=== PATIENT | female | born 1955 ===

== ENCOUNTER 2017-09-11 14:00 | Emergency (ER) | payer BC ==
[~2017-09-11 14:00] MED LIST: EPINEPHrine SYR 0.1 MG/ML* (1:10,000) SYRINGE ONE; Norepinephrine VIAL* 1 MG/ML 4 ML VIAL ONE
[2017-09-11] MEDS ORDERED: Norepinephrine 16MCG/ML IVPRE* 4,000 MCG/250 ML BAG IV ONE (14:19)
[2017-09-11] MEDS ORDERED: EPINEPHrine SYR 0.1 MG/ML* (1:10,000) SYRINGE ONE (14:45)
[2017-09-11] MEDS ORDERED: Norepinephrine VIAL* 1 MG/ML 4 ML VIAL ONE (14:45)
[2017-09-11] MEDS ORDERED: Sodium Bicarbonate 8.4%* 50 ML SYRINGE ONE (14:45)
[2017-09-11 15:08] LABS: Hematocrit 16 % (35-47); Hemoglobin 5.1 g/dl (12.0-16.0); Mean Corpuscular HGB Conc 31 g/dl (31-36); Mean Corpuscular Hemoglobin 29 pg (27-31); Mean Corpuscular Volume 93 fL (80-97); Mean Platelet Volume 6.5 um3 (7.4-10.4); Platelet Count 93 10^3/ul (150-450); Red Blood Count 1.77 10^6/ul (4.0-5.4); Red Cell Distribution Width 19 % (10.5-15); White Blood Count 8.3 10^3/ul (3.5-10.8)
--- NOTE | 2017-09-11 15:15 | HP ---
H&P (Free Text) History and Physical: CRITICAL CARE MEDICINE DATE: 09/11/17 TIME: 1400 PRIMARY ONC CARE PROVIDER: Gabriella REFERRING PROVIDER: Bladimir REASON/CHIEF COMPLAINT: [facility] HISTORY OF PRESENT ILLNESS: 61 yo female undergoing palliative chemotx, xrt for metastatic small cell lung ca who has been declining at home but failed set up for homebound teacher per family and was home today with her . Feeling unwell but could not tell what was wrong. Seemed to syncopize in bed and he called son and 911. on foreign banknote teller trader, cpr initiated. EMS able to place advanced airway. I/o. ROSC x 3 en route but again with pulse lost, pea. epi x5. another course in ED with rosc and started on levo post. IVF instilling. Fixed and dilated on exam. no corneals. coarse bs. thick LV, underfilled on bedside. D/w family and we are in agreement to continue chemical support and withhold cpr. REVIEW OF SYSTEMS: As per HPI. PAST MEDICAL HISTORY: As per HPI. MEDICATIONS: Reviewed. ALLERGIES: Reviewed. SOCIAL HISTORY: Reviewed. . son and proxy. was a school patrol FAMILY HISTORY: Noncontributory at present. PHYSICAL EXAM: Vital Signs: Reviewed. Neurologic: comatose with gcs 3T. no brain stem reflexes. fixed and dil HEENT: ett in place. some bloddy secretions. Cardiovascular: with rosc distant, tachy Respiratory: coarse bl Abdomen: soft Extremities: pale, no edema. i/o LABS: Reviewed. No back at time of eval. IMAGING: Reviewed. cxr reviewed. MEDICATIONS: Reviewed but unconfirmed ASSESSMENT: 61 F [facility]CA - pea with downtime about 45min Just now labs revealing severe anemia Cardiogenic shock Hypovolemic shock Acute hypoxic resp failure Coma on presentation. Anoxic brain injury? PLAN: Neurologic: coma. ttm euthermia. prognosis poor. Cardiovascular: levophed at 30. IVF boluses instilled. Respiratory: cannot maintain oxygneation nor ventilation very well despite vent support due to acid overload. would need considerable time and certainly more time at these levels would worsen brain anoxia. not ecmo candidate. Gastrointestinal: would need ogt. sup Renal/Metabolic: jaciel and LA apparent and msof. wooten placed without much uout Infectious Disease: broad coverage perhaps given immunsuppression and waiting on labs Hematology: labs back post mortem. Endocrine: considered steroids. Musculoskeletal: bedrest Psych/Social: d/w family emergently and throughout. She contines to undergo chemical resuscitation and yet continues with arrests. considering blood and esclations of care but given down time and acute as well as underlying system failures, we were in agreement for supportive care as DNI. She continued to decline despite supports, levophed max, fluids bicarb. And family, we opted for comfort alone. Removed from gtt and vent and allowed to pass peacefully. D/w Dr. Garrison Disposition: will pass Code Status: DNR Critical Care Time: 60min Sarah Beth Jaramillo DO
[2017-09-11 15:20] LABS: EGFR Non-African American 55.9 (>60)
--- NOTE | 2017-09-11 15:20 | RAD ---
INDICATION: Unresponsiveness COMPARISON: None. TECHNIQUE: Single AP portable view of the chest was obtained. FINDINGS: Image quality is compromised due to the relative inferiority of a portable chest x-ray and somewhat by the overlying AED pads. There is an endotracheal tube with the tip terminating 3.6 cm above the rocael. The heart and mediastinum exhibit normal size and contour. There is patchy density overlying the bilateral lungs, slightly worse in the right than the left. Visualized bones are normal for the patient's age. IMPRESSION: Right upper lung dominant density could be seen in the setting of pulmonary edema according to the patient's clinical presentation.
[2017-09-11 15:25] LABS: INR 1.48 (0.77-1.02)
[2017-09-11] MEDS ORDERED: Morphine VIAL* 4 MG/ML VIAL (1 ml vial) IV ONE (15:29)
[2017-09-11 15:30] VITALS: BP 62/41
[2017-09-11] MEDS ORDERED: Morphine INJ* 10 MG/ML 1 ML CARPUJECT IV ONE (15:36)
[2017-09-11 15:52] LABS: ABS Basophils 0.1 10^3/ul (0-0.2); ABS Eosinophils 0 10^3/ul (0-0.6); ABS Lymphocytes 5.9 10^3/ul (1.0-4.8); ABS Monocytes 0.1 10^3/ul (0-0.8); ABS Neutrophils 2.3 10^3/ul (1.5-7.7); ABS Nucleated RBC 0 10^3/ul; Eosinophil % 0.4 % (0-6); Lymphocyte % 70.9 % (25-47); Nucleated Red Blood Cells % 0.1
--- NOTE | 2017-09-11 15:52 | PN ---
Progress Note - Progress Note Date of Service: 09/11/17 Note: CRITICAL CARE MEDICINE Date: 09/11/17 Time: 1550 Family at bedside. We continued to discuss. Brother had arrived. All in agreement to cease tx and allow her to be comfortable and pass. Levophed stop. 10mg morphine. Terminally extubated at 15:31. Passed at 3:45 with family present. Code Status: DNR Critical Care Time: 15min additional F. Diego Jaramillo, DO
--- NOTE | 2017-09-13 14:33 | ED ---
Neeraj Araiza Julia, scribed for Tashi Garrison MD on 09/11/17 at 1409 . Cardiac Resuscitation - HPI Summary HPI Summary: This patient is a 61 year old F BIBA to [facility] unresponsive. EMS was called by the family who found her unresponsive and told them the patient was no DNR or DNI. Family started CPR at the scene. EMS performed CPR for 30-40 minutes. EMS lost pulses at 13:56, and felt faint pulses intermittently. Patient was intubated with 7.5 tube with 25 at the lip. IO at R tibia. Five rounds of Epinephrine was given. Bicarb was not given. PMHx of stage 4 lung CA with metastisis to the brain CA. HPI IS LIMITED. PATIENT IS LEVEL 5 CAVEAT. - History of Current Complaint Stated Complaint: UNRESPONSIVE Hx Obtained From: EMS Hx From Patient Unobtainable Due To: Extremis Onset/Duration: Unknown Arrest Witnessed: No Down-time Before Basic Life Support Initiated: Unknown Down-time Before Advanced Life Support Initiated: Unknown - Past Medical History Past Medical History: Other: - stage 4 brain CA - Family History Family History: Unobtainable Due to Extremis - Social History Social History: Unobtainable Due to Extremis - Review of Systems Review of Systems: Unobtainable Due to Extremis Physical Examination - Summary Physical Exam Summary: VITAL SIGNS: Reviewed. GENERAL: Patient is unresponsive. Patient was intubated by EMS. Patient is is active CPR HEAD AND FACE: No signs of trauma. No ecchymosis, hematomas or skull depressions. EYES: Pupils dilated and non reactive. No corneal reaction MOUTH: Oral mucosa dry NECK: Supple, trachea is midline, no adenopathy, no JVD, no carotid bruit. Intibated with 7.5 EET. LUNGS: Decreased breath sounds. CVS: Active CPR, no pulses ABDOMEN: Soft and decreased bowel sounds. EXTREMITIES: No edema noted. NEURO: Comatose with a GCS of 3. No brain stem reflexes. Pupils fixed and dilated. SKIN: Dry and warm Diagnostics - Vital Signs Vital Signs Temp Pulse Resp BP Pulse Ox 09/11/17 15:32 107 74 09/11/17 15:27 62/41 09/11/17 15:22 71/53 09/11/17 15:16 80/45 09/11/17 15:12 76/44 09/11/17 15:07 97.1 F 09/11/17 15:06 80/53 09/11/17 14:57 93/77 09/11/17 14:47 94 147/47 09/11/17 14:30 0 F 0 0 00/00 0 09/11/17 14:06 80 94 - Laboratory Lab Results: Lab Results 09/11/17 09/11/17 09/11/17 Range/Units 14:30 14:54 14:54 WBC 8.3 (3.5-10.8) 10^3/ul RBC 1.77 L (4.0-5.4) 10^6/ul Hgb 5.1 L* (12.0-16.0) g/dl Hct 16 L (35-47) % MCV 93 (80-97) fL MCH 29 (27-31) pg MCHC 31 (31-36) g/dl RDW 19 H (10.5-15) % Plt Count 93 L (150-450) 10^3/ul MPV 6.5 L (7.4-10.4) um3 Neut % (Auto) 27.0 L (38-83) % Lymph % (Auto) 70.9 H (25-47) % [place] % (Auto) 0.8 (0-7) % Eos % (Auto) 0.4 (0-6) % Baso % (Auto) 0.9 (0-2) % Absolute Neuts (auto) 2.3 (1.5-7.7) 10^3/ul Absolute Lymphs (auto) 5.9 H (1.0-4.8) 10^3/ul Absolute Monos (auto) 0.1 (0-0.8) 10^3/ul Absolute Eos (auto) 0 (0-0.6) 10^3/ul Absolute Basos (auto) 0.1 (0-0.2) 10^3/ul Absolute Nucleated RBC 0 10^3/ul Nucleated RBC % 0.1 ESR 33 H (0-30) mm/Hr Hem Pathologist Commnt Pending INR (Anticoag Therapy) 1.48 H (0.77-1.02) APTT 111.6 H* (26.0-36.3) seconds Fibrinogen 94.9 L (110.8-404.3) mg/dL ABG pH Dowel Machine Operator ABG pH (Temp Correct) < 7.00 L* (7.35-7.45) ABG pCO2 80 H* (35-45) mmHg ABG pO2 92 (80-100) mmHg ABG HCO3 TNP ABG O2 Saturation 90.4 L (95-98) % ABG Base Excess TNP Sodium (139-145) mmol/L Potassium (3.5-5.0) mmol/L Chloride (101-111) mmol/L Carbon Dioxide (22-32) mmol/L Anion Gap (2-11) mmol/L BUN (6-24) mg/dL Creatinine (0.51-0.95) mg/dL Est GFR ( Amer) (>60) Est GFR (Non-Af Amer) (>60) BUN/Creatinine Ratio (8-20) Glucose (70-100) mg/dL Lactic Acid (0.5-2.0) mmol/L Calcium (8.6-10.3) mg/dL Total Bilirubin (0.2-1.0) mg/dL AST (13-39) U/L ALT (7-52) U/L Alkaline Phosphatase (34-104) U/L Total Creatine Kinase (10-223) U/L Troponin I (<0.04) ng/mL C-Reactive Protein (< 5.00) mg/L B-Natriuretic Peptide ( - 100) pg/mL Total Protein (6.4-8.9) g/dL Albumin (3.2-5.2) g/dL Globulin (2-4) g/dL Albumin/Globulin Ratio (1-3) Procalcitonin (<0.6) ng/mL 09/11/17 09/11/17 09/11/17 Range/Units 14:54 14:54 14:54 WBC (3.5-10.8) 10^3/ul RBC (4.0-5.4) 10^6/ul Hgb (12.0-16.0) g/dl Hct (35-47) % MCV (80-97) fL MCH (27-31) pg MCHC (31-36) g/dl RDW (10.5-15) % Plt Count (150-450) 10^3/ul MPV (7.4-10.4) um3 Neut % (Auto) (38-83) % Lymph % (Auto) (25-47) % [place] % (Auto) (0-7) % Eos % (Auto) (0-6) % Baso % (Auto) (0-2) % Absolute Neuts (auto) (1.5-7.7) 10^3/ul Absolute Lymphs (auto) (1.0-4.8) 10^3/ul Absolute Monos (auto) (0-0.8) 10^3/ul Absolute Eos (auto) (0-0.6) 10^3/ul Absolute Basos (auto) (0-0.2) 10^3/ul Absolute Nucleated RBC 10^3/ul Nucleated RBC % ESR (0-30) mm/Hr Hem Pathologist Commnt INR (Anticoag Therapy) (0.77-1.02) APTT (26.0-36.3) seconds Fibrinogen (110.8-404.3) mg/dL ABG pH ABG pH (Temp Correct) (7.35-7.45) ABG pCO2 (35-45) mmHg ABG pO2 (80-100) mmHg ABG HCO3 ABG O2 Saturation (95-98) % ABG Base Excess Sodium 144 (139-145) mmol/L Potassium 5.3 H (3.5-5.0) mmol/L Chloride 107 (101-111) mmol/L Carbon Dioxide 13 L* (22-32) mmol/L Anion Gap 24 H (2-11) mmol/L BUN 10 (6-24) mg/dL Creatinine 1.01 H (0.51-0.95) mg/dL Est GFR ( Amer) 71.9 (>60) Est GFR (Non-Af Amer) 55.9 (>60) BUN/Creatinine Ratio 9.9 (8-20) Glucose 404 H (70-100) mg/dL Lactic Acid 9.1 H* (0.5-2.0) mmol/L Calcium 6.9 L (8.6-10.3) mg/dL Total Bilirubin 0.60 (0.2-1.0) mg/dL AST 234 H (13-39) U/L ALT 184 H (7-52) U/L Alkaline Phosphatase 218 H (34-104) U/L Total Creatine Kinase 107 (10-223) U/L Troponin I 0.23 H* (<0.04) ng/mL C-Reactive Protein 71.32 H (< 5.00) mg/L B-Natriuretic Peptide 111 H ( - 100) pg/mL Total Protein 3.6 L (6.4-8.9) g/dL Albumin 1.8 L (3.2-5.2) g/dL Globulin 1.8 L (2-4) g/dL Albumin/Globulin Ratio 1.0 (1-3) Procalcitonin (<0.6) ng/mL 09/11/17 Range/Units 14:54 WBC (3.5-10.8) 10^3/ul RBC (4.0-5.4) 10^6/ul Hgb (12.0-16.0) g/dl Hct (35-47) % MCV (80-97) fL MCH (27-31) pg MCHC (31-36) g/dl RDW (10.5-15) % Plt Count (150-450) 10^3/ul MPV (7.4-10.4) um3 Neut % (Auto) (38-83) % Lymph % (Auto) (25-47) % [place] % (Auto) (0-7) % Eos % (Auto) (0-6) % Baso % (Auto) (0-2) % Absolute Neuts (auto) (1.5-7.7) 10^3/ul Absolute Lymphs (auto) (1.0-4.8) 10^3/ul Absolute Monos (auto) (0-0.8) 10^3/ul Absolute Eos (auto) (0-0.6) 10^3/ul Absolute Basos (auto) (0-0.2) 10^3/ul Absolute Nucleated RBC 10^3/ul Nucleated RBC % ESR (0-30) mm/Hr Hem Pathologist Commnt INR (Anticoag Therapy) (0.77-1.02) APTT (26.0-36.3) seconds Fibrinogen (110.8-404.3) mg/dL ABG pH ABG pH (Temp Correct) (7.35-7.45) ABG pCO2 (35-45) mmHg ABG pO2 (80-100) mmHg ABG HCO3 ABG O2 Saturation (95-98) % ABG Base Excess Sodium (139-145) mmol/L Potassium (3.5-5.0) mmol/L Chloride (101-111) mmol/L Carbon Dioxide (22-32) mmol/L Anion Gap (2-11) mmol/L BUN (6-24) mg/dL Creatinine (0.51-0.95) mg/dL Est GFR ( Amer) (>60) Est GFR (Non-Af Amer) (>60) BUN/Creatinine Ratio (8-20) Glucose (70-100) mg/dL Lactic Acid (0.5-2.0) mmol/L Calcium (8.6-10.3) mg/dL Total Bilirubin (0.2-1.0) mg/dL AST (13-39) U/L ALT (7-52) U/L Alkaline Phosphatase (34-104) U/L Total Creatine Kinase (10-223) U/L Troponin I (<0.04) ng/mL C-Reactive Protein (< 5.00) mg/L B-Natriuretic Peptide ( - 100) pg/mL Total Protein (6.4-8.9) g/dL Albumin (3.2-5.2) g/dL Globulin (2-4) g/dL Albumin/Globulin Ratio (1-3) Procalcitonin 0.6 H (<0.6) ng/mL Result Diagrams: 09/11/17 14:54 09/11/17 14:54 Lab Statement: Any lab studies that have been ordered have been reviewed, and results considered in the medical decision making process. - Radiology CXR Radiology Interpretation Completed By: Radiologist - Right upper lung dominant density could be seen in the setting of pulmonary edema according to the patient 's clinical presentation. ED Physician has reviewed this report. Cardiac Resus. Course/Dx - Course Assessment/Plan: 61 year old F BIBA to [facility] unresponsive. EMS was called by the family who found her unresponsive and told them the patient was no DNR or DNI. Family started CPR at the scene. EMS performed CPR for 30-40 minutes. EMS lost pulses at 13:56, and felt faint pulses intermittently. Patient was intubated with 7.5 tube with 25 at the lip. Patient remains unresponsive with active CPR.Patient lost pulses at 1402. Patient placed on shipping supervisor, IV access obtained and three rounds of epinepherine were given beginning at 1406, and pulses were regained and patient was given IV fluids. At 14:44 pateint lost pulses again and ABC alert was called and CPR continued. She recieved two rounds of epinepherine and bicarb and regained pulses. CXR reveals, "Right upper lung dominant density could be seen in the setting of pulmonary. edema according to the patient's clinical presentation." as per radiologist. ABG shows pH 7 for which the patient was given Bicarb, Co2 is 80, PO2 92, O2 90. At 1430 Spoke with son and they understand the patient has a very poor prognosis. Dr. Jaramillo, further explained prognosis to patient family and they understand. At 15:00 Dr. Jaramillo spoke with family and they no longer want CPR but would like to continue with epinephrine without CPR. Bloodwork reveals work Hgb of 5.1 and Hct of 16, APTT 111.6, absolute lymphs of 5.9, Potassium 5.3, CRP 71.32, lactic acid 9.1, troponin 0.23, and increased liver function test at this point. Dr. Jaramillo examined the patient we discussed case with the family and they decided to retreat life support due to prognosis of patient at this point admitted to Dr. Jaramillo and he eventually removed the intubation tube and IV access and declared the patient and will also sign the certificate. - Diagnoses Provider Diagnoses: Cardiorespiratory arrest During the Visit The Following Alert/Code Occurred: ABC Alert - called at 1343 eta 15 minutes, called again at 1444 - Critical Care Time Critical Care Time: 75-104 min Discharge - Sign-Out/Discharge Documenting (check all that apply): Discharge/Admit/Transfer - admit - Discharge Plan Condition: Disposition: Referrals: Krystian Lin MD [Primary Care Provider] - - Billing Disposition and Condition Condition: Disposition: The documentation as recorded by the Neeraj edgar Julia accurately reflects the service I personally performed and the decisions made by , Tashi Garrison MD.
== END 2017-09-11 16:49 | disposition expired ==
LOC: ED 14:00 → UNDOADMIN 15:03 → ICU 15:03 → ED 16:49
DX: I46.9 Cardiac arrest, cause unspecified (principal); Z85.841 Personal history of malignant neoplasm of brain; Z85.118 Personal history of other malignant neoplasm of bronchus and lung
CPT/HCPCS: 36415; 71045; 80053; 82550; 82803; 83605; 83880; 84145; 84484; 85025; 85060; 85384; 85610; 85652; 85730; 86140; 87040; 96374; 96375; 99285; J0171; J2270